=== PATIENT | male | born 1990 | race Caucasian/White ===

== ENCOUNTER 2017-11-08 11:34 | Emergency (ER) | payer OTHER ==
[~2017-11-08] VITALS: Ht 175.3 cm; Wt 83.9 kg
[2017-11-08 11:38] VITALS: BP_SYST 144
--- NOTE | 2017-11-08 11:48 | NUR ---
Pt placed in bed 2
--- NOTE | 2017-11-08 11:49 | NUR ---
Pt complains of SOB since last night, pt states has asthma and uses inhaler but early this morning inhaler was not working. Pt states "coughing so much, chest hurts." Pt denies fever, n/v. Pt is able to communicate in full sentences. No other injuries/complaints per pt or noted.
--- NOTE | 2017-11-08 11:51 | NUR ---
ER at bedside examining patient.
[2017-11-08] MEDS ORDERED: ALBUTEROL SULFATE 0.083% 2.5 MG/3 ML VIAL.NEB IH ONE ×2 (12:00→12:45)
[2017-11-08] MEDS ORDERED: MAGNESIUM SULFATE 50 ML IV ONE (12:00)
[2017-11-08] MEDS ORDERED: methylPREDNISolone SOD SUCC/PF 62.5 MG/ML VIAL IVP ONE (12:00)
[2017-11-08] MEDS ORDERED: IPRATROPIUM BROM 0.5 MG/2.5 ML VIAL.NEB (ATROVENT) IH ONE ×2 (12:00→12:45)
--- NOTE | 2017-11-08 12:05 | NUR ---
Received report from [facility]. Checked on patient and he states he is feeling better. Pt currently doing breathing treatment.
--- NOTE | 2017-11-08 12:06 | NUR ---
Medications were given, pt tolerated well. No noted adverse reaction, will continue to monitor
[2017-11-08 13:27] VITALS: BP_SYST 144
--- NOTE | 2017-11-08 13:27 | NUR ---
Patient given written and verbal discharge instructions and verbalizes understanding. ER MD discussed with patient the results and treatment provided. Patient in stable condition. ID arm band removed. Rx of Tylenol , prednisone, zythromax and Albuterol given. Patient educated on pain management and to follow up with PMD. Pain Scale 0/10. Opportunity for questions provided and answered.
== END 2017-11-08 13:27 | disposition home or self-care (01) ==
LOC: SED 11:34
DX: J45.901 Unspecified asthma with (acute) exacerbation (principal)
CPT/HCPCS: 94640; 96365; 96375; 99284; J2930; J3475

== ENCOUNTER 2021-07-02 01:37 | Emergency (ER) | payer BC, SELFPAY ==
[~2021-07-02] VITALS: Ht 175.3 cm; Wt 83.9 kg
[2021-07-02 01:51] VITALS: BP_SYST 117
[2021-07-02] MEDS ORDERED: ONDANSETRON 4 MG ODT TAB PO ONE (02:30)
[2021-07-02] MEDS ORDERED: MECLIZINE HCL 25 MG TABLET (ANITVERT) PO ONE (02:30)
[2021-07-02] MEDS ORDERED: ONDA4TAB5 PO (03:56)
[2021-07-02] MEDS ORDERED: MECL-103 PO (03:56)
[2021-07-02 04:03] VITALS: BP_SYST 112
== END 2021-07-02 04:03 | disposition home or self-care (01) ==
LOC: SED 01:37
DX: H81.10 Benign paroxysmal vertigo, unspecified ear (principal); J45.909 Unspecified asthma, uncomplicated; Z79.899 Other long term (current) drug therapy; Z20.822 Contact with and (suspected) exposure to COVID-19
CPT/HCPCS: 87426; 99283; J8597; Q0162; 36415

== ENCOUNTER 2023-11-26 18:19 | Emergency (ER) | payer BC ==
[~2023-11-26] VITALS: Ht 172.7 cm; Wt 85.7 kg
[~2023-11-26 18:19] MED LIST: MECL-103 PO; ONDA4TAB5 PO
[2023-11-26 18:25] VITALS: BP_SYST 125; PULSE 75; RESP 26; TEMP 98.5; O2SAT 98
[2023-11-26] MEDS ORDERED: ALBUTEROL SULFATE 0.083% 2.5 MG/3 ML VIAL.NEB INH ONE (18:30)
[2023-11-26] MEDS ORDERED: IPRATROPIUM BROM 0.5 MG/2.5 ML VIAL.NEB (ATROVENT) INH ONE (18:30)
[2023-11-26] MEDS ORDERED: predniSONE 20 MG TABLET PO ONE (18:30)
[2023-11-26 19:32] LABS: INFLUENZA TYPE A Negative (NEGATIVE); INFLUENZA TYPE B NEGATIVE (NEGATIVE)
[2023-11-26] MEDS ORDERED: PRED20TA PO (20:45)
[2023-11-26 20:58] VITALS: BP_SYST 118; PULSE 55; RESP 18; TEMP 98; O2SAT 98
== END 2023-11-26 20:58 | disposition home or self-care (01) ==
LOC: SED 18:19
DX: J45.901 Unspecified asthma with (acute) exacerbation (principal); R06.02 Shortness of breath; R05.9 Cough, unspecified; Z79.899 Other long term (current) drug therapy; Z20.822 Contact with and (suspected) exposure to COVID-19
CPT/HCPCS: 99284; 71045; 87426; 36415; 94640; 87804 ×2; J7512